=== PATIENT | male | born 1965 | race African-American/Black ===

== ENCOUNTER 2022-05-28 10:46 | Emergency (ER) | payer SELFPAY ==
[~2022-05-28] VITALS: Ht 185.4 cm; Wt 83.9 kg
[2022-05-28 11:45] VITALS: BP 128/75
--- NOTE | 2022-05-28 12:00 | NUR ---
PRESENTS TO ED FOR MED REFILL OF DOXYCYCLINE 100MG BID PO FOR TICK BITE ON LEFT ANKLE ON 05/27/22/ PER PT HE WAS SEEN IN "[facility]" IN [place] AND THAT HE "LOST HIS SCRIPT AND MEDS IN THE GRAYHOUND". PASCUAL PMH: ALEKSANDAR
[2022-05-28] MEDS ORDERED: DOXY-745 PO (14:02)
--- NOTE | 2022-05-28 15:00 | NUR ---
Patient discharged with v/s stable. Written and verbal after care instructions ABOUT LYME DISEASE given and explained. Patient alert, oriented and verbalized understanding of instructions. Ambulatory with steady gait. All questions addressed prior to discharge. ID band removed. Patient advised to follow up with PMD. Rx of DOXYCYCLINE given. Patient educated on indication of medication including possible reaction and side effects. Opportunity to ask questions provided and answered.
== END 2022-05-28 15:00 | disposition admitted as inpatient to this hospital (09) ==
LOC: MED 10:46
DX: A69.20 Lyme disease, unspecified (principal); Z76.0 Encounter for issue of repeat prescription
CPT/HCPCS: 99281

== ENCOUNTER 2022-07-11 18:09 | Emergency (ER) | payer MEDICAID ==
[~2022-07-11] VITALS: Ht 185.4 cm; Wt 83.9 kg
[~2022-07-11 18:09] MED LIST: DOXY-745 PO
[2022-07-11 18:47] VITALS: BP 121/79
--- NOTE | 2022-07-11 20:55 | NUR ---
PATIENT LEFT WITHOUT BEING SEEN BY DR. Sauer. NO FURTHER CARE PROVIDED FOR PATIENT.
== END 2022-07-11 20:55 | disposition left against medical advice (07) ==
LOC: MED 18:09
DX: K08.89 Other specified disorders of teeth and supporting structures (principal); Z53.21 Procedure and treatment not carried out due to patient leaving prior to being seen by health care provider

== ENCOUNTER 2022-08-10 01:29 | Emergency (ER) | payer MEDICAID ==
[~2022-08-10] VITALS: Ht 185.4 cm; Wt 81.6 kg
[2022-08-10 01:50] VITALS: BP 111/65
--- NOTE | 2022-08-10 01:52 | NUR ---
TO LOBBY A/W BED AMBULATORY
[2022-08-10] MEDS ORDERED: CHLO473S62 PO (02:20)
[2022-08-10 02:55] VITALS: BP 111/65
--- NOTE | 2022-08-10 02:55 | NUR ---
Patient discharged with v/s stable. Written and verbal after care instructions given and explained. Patient alert, oriented and verbalized understanding of instructions. Ambulatory with steady gait. All questions addressed prior to discharge. ID band removed. Patient advised to follow up with PMD. Rx of PERIDEX given. Patient educated on indication of medication including possible reaction and side effects. Opportunity to ask questions provided and answered.
== END 2022-08-10 02:55 | disposition home or self-care (01) ==
LOC: MED 01:29
DX: K08.9 Disorder of teeth and supporting structures, unspecified (principal); Z76.0 Encounter for issue of repeat prescription
CPT/HCPCS: 99282

== ENCOUNTER 2022-08-15 14:08 | Emergency (ER) | payer MEDICAID ==
[~2022-08-15] VITALS: Ht 185.4 cm; Wt 82.1 kg
[~2022-08-15 14:08] MED LIST changes: +CHLO473S62 PO
[2022-08-15 14:27] VITALS: BP 101/59
--- NOTE | 2022-08-15 14:49 | NUR ---
Patient being evaluated by MARY BETH PRESTON at [facility].
--- NOTE | 2022-08-15 14:50 | NUR ---
BIB SELF C/O LEFT ANKLE PAIN X 3 DAYS. DENIES TRAUMA. PT STATED "FLEA BITE" PMH: DENIES
[2022-08-15] MEDS ORDERED: DOXY-690 PO (14:51)
[2022-08-15 15:40] VITALS: BP 101/59
--- NOTE | 2022-08-15 15:40 | NUR ---
Patient discharged with v/s stable. Written and verbal after care instructions given and explained. Patient alert, oriented and verbalized understanding of instructions. Ambulatory with steady gait. All questions addressed prior to discharge. ID band removed. Patient advised to follow up with PMD. Rx of VIBRAMYCIN given. Patient educated on indication of medication including possible reaction and side effects. Opportunity to ask questions provided and answered.
== END 2022-08-15 15:40 | disposition home or self-care (01) ==
LOC: MED 14:08
DX: M25.572 Pain in left ankle and joints of left foot (principal); Z76.0 Encounter for issue of repeat prescription
CPT/HCPCS: 99281